=== PATIENT | male | born 1955 | race Caucasian/White ===

== ENCOUNTER 2018-03-18 09:52 | Emergency (ER) | payer MEDICARE, SELFPAY ==
[2018-03-18] VITALS (18 sets, daily range): BP systolic 138–167; BP diastolic 87–105; PULSE 64–87; RESP 10–18; TEMP 36.4–36.9; O2SAT 95–99
[2018-03-18 10:45] LABS: Abs Immature Grans 0.03 k/cumm (0.0-0.09); Absolute Basophil Count 0.02 k/cumm (0.0-0.2); Absolute Eosinophil Count 0.24 k/cumm (0.0-0.7); Absolute Lymphocyte Count 1.21 k/cumm (1.2-3.4); Absolute Monocyte Count 0.51 k/cumm (0.11-0.7); Absolute Neutrophil Count 4.66 k/cumm (1.2-6.7); Basophils % 0.3; Eosinophils % 3.6; HCT 49.9 % (40.0-50.0); HGB 16.5 g/dL (13.5-17.5); Immature Grans % 0.4; Lymphocytes % 18.1; Mean Corp. HGB Concentration 33.1 g/dL (32.0-36.0); Mean Corpuscular Hemoglobin 29.8 pg (27.0-33.0); Mean Corpuscular Volume 90.2 fL (80-95); Mean Platelet Volume 9.6 fL (8.0-11.0); Monocytes % 7.6; Platelet Count 170 x1000/uL (130-400); RBC 5.53 m/cumm (4.50-6.00); RBC Distribution Width 13.7 % (11.8-14.1); White Blood Cell Count 6.67 k/cumm (4.4-10.8)
[2018-03-18] MEDS: Normal Saline 1,000 ML 1000 ML IV (10:55)
[2018-03-18 11:02] LABS: INR 1.1 (1.0-3.5); PTT Activated 26.5 sec (21.0-31.4); Prothrombin Time 10.3 sec (9.3-10.8)
[2018-03-18 11:06] LABS: ALT 35 U/L (12-78); AST 19 U/L (15-37); Albumin 3.7 g/dL (3.4-5.0); Alkaline Phosphatase 86 U/L (46-116); Anion Gap 7.5 mmol/L (3-11); BUN 10 mg/dL (7-18); Bilirubin, Total 0.9 mg/dL (0.2-1.0); CO2 29.5 mmol/L (21.0-32.0); CREATININE 1.09 mg/dL (0.70-1.30); Calcium 9.2 mg/dL (8.5-10.1); Chloride 103 mmol/L (98-107); Glucose 163 mg/dL (70-100); Potassium 3.8 mmol/L (3.5-5.1); Sodium 140 mmol/L (136-145); TSH 2.28 uIU/mL (0.358-3.74); Total Protein 7.6 g/dL (6.4-8.2); Troponin I < 0.02 ng/mL (0.00-0.06)
[2018-03-18 11:16] LABS: D-Dimer 438 ng/mlFEU (<500)
--- NOTE | 2018-03-18 11:30 | DI.CT_ITS ---
SYMPTOMS/DIAGNOSIS: SYNCOPE, DIZZY CRANIAL CT, NONCONTRAST: CT examination was performed without contrast administration. There is mild generalized cerebral atrophy. There is unremarkable appearance of the orbital and temporal bone structures. Paranasal sinuses and mastoid air cells are well aerated as visualized. No evidence of acute intracranial hemorrhage, mass effect or midline shift. CONCLUSION: No evidence of acute intracranial process. CT ANGIOGRAPHY, THORAX: CT angiography was performed with multi slice acquisition and multi planar and 3D reconstruction. CT angiography of the thorax was performed with intravenous infusion of 100 cc of Omnipaque 350. Images obtained through the upper abdomen show numerous left renal cysts and unremarkable appearance of visualized portions of the liver, spleen, pancreas, right kidney and adrenals. Gallbladder and bile ducts are CT normal. No evidence of pulmonary embolic disease. No evidence of thoracic aortic dissection or aneurysm. No pericardial effusion or cardiomegaly. No pleural effusion or pneumothorax. There is a small calcified nodule of the right lung base. Minimal apparent changes of scattered pulmonary scarring are noted. Otherwise the lungs are clear. Tracheobronchial tree appears intact. No mediastinal or hilar adenopathy. No axillary or supraclavicular adenopathy. CONCLUSION: No evidence of pulmonary embolic disease.
--- NOTE | 2018-03-18 11:40 | W.ED.GENAD ---
Discharge Plan Disposition Patient Disposition: HOME Condition: Good Discharge Details Chief Complaint: Dizzy/Sync Clinical Impression: Episodic lightheadedness, Acute dehydration Primary Care Provider: JAMES,LOCAL ED Provider: Walter Durand Home Meds and New Rx's Prescriptions: No Action pyridostigmine bromide [Mestinon] 60 mg Tablet 60 mg PO QID RF: 0 hydrocodone-acetaminophen [Vicodin] 5-300 mg Tablet 1 tab PO PRN PRNRF: 0 Discharge Instructions Instructions: Lightheadedness (ED) Additional Instructions: Please drink 8-10 cups of water per day. Please follow-up with your finished garment inspector as soon as possible for further evaluation of your lightheadedness. If you notice any worsening of your symptoms, or any new symptoms such as vomiting, diarrhea, fever, chills, shortness of breath, chest pain, numbness, weakness, or fainting , please return immediately to the emergency department for reevaluation. Please follow up with your primary care provider as soon as possible for reassessment and reevaluation. As always, it was a pleasure participating in your medical care today. Discharge Data Discharge Date/Time-TO BE ENTERED AT DEPARTURE: 03/18/18 15:19 Medical Decision Making This is a pleasant 62-year-old male who presents today for evaluation of near syncope, and nonexertional chest pain. He fainted 1 month ago, and has had multiple near syncopal episodes since then. They recently drove across [place] to visit the leaves. Currently his chest pain is very mild. It is nonexertional. His pulses are equal bilaterally. He has a history of blood clots, but this is 20 years ago when he was on chemotherapy for lymphoma. He is not on any blood thinners now per physician recommendations. He did have a negative stress test 2 years ago. Physical exam shows no significant abnormalities. We will rehydrate the patient, and evaluate for any acute etiology. 11:49 AM D-dimer is negative. EKG is benign at this time. We will get a CTA for evaluation of dissection, I do not think that there is any need for ultrasound of the lower extremities with a negative d-dimer. We will get a CT of the head to rule out any acute intracranial process. EKG 10: 00 Rate 87, intervals normal, sinus rhythm, no ST elevations or depressions. Inverted T wave in V1. No Q waves. Normally EKG CT scan of the head without contrast per virtual radiology demonstrates no acute intracranial abnormality. CT angiogram of the chest per virtual radiology demonstrates #1- for acute pulmonary embolism. #2 atherosclerotic plaque along the thoracic aortic arch. No evidence of aneurysm or dissection. Repeat EKG 15: 07 Rate 63, NE 156, QTc 444, QRS 96, sinus rhythm, no ST elevations or depressions, no T wave inversions, no Q waves. Normal EKG. The patient has had a benign laboratory workup with no significant electrolyte or other abnormalities. Pressure is mildly elevated but stable. CT angiogram, serial EKGs and serial troponins are all negative. The patient states that he feels great at this time. He was rehydrated and I feel that this may have been a strong component for his lightheadedness. We did get the patient up, ambulated him around the department, he showed no evidence of chest pain weakness dizziness or lightheadedness or near syncope. I had a long discussion with the patient regarding further additional workup on an inpatient basis versus discharge home, and patient and are requesting discharge home. I feel that this is reasonable. I discussed with the patient the importance of close follow-up with his finished garment inspector as well as potential tilt table test sting, he states that although he is traveling he will be able to follow-up with his primary care provider and his heart doctor. We discussed red flags for which to return, and the patient understands. I have extensively reviewed the treatment plan and discharge instructions with the patient and their family. I have addressed all patient concerns at this time. The patient and family was made aware of what symptoms to monitor for that would warrant a return to the emergency department. Discussed the plan with the patient and family, they demonstrate verbal understanding and agreement with our assessment and plan at this time. HPI General Date/Time Provider Initiated Documentation: 03/18/18 10:03. HPI Narrative: This is a 62-year-old male with a past medical history of myasthenia gravis, lymphoma 20 years ago, prostate cancer with surgery a few years ago, and a history of clots in the past when he was receiving chemotherapy 20 years ago. He is not on any blood thinners and has not been on any for quite some time. He presents today for evaluation of lightheadedness. He states that for the past month he has been consistently getting more more lightheaded. He did pass out roughly 2-3 weeks ago at one point, and has had multiple near syncopal episodes since then but none currently. He states that they recently just drove across [place] from [facility], to see the leaves, and then roughly 1-2 hours ago he began feeling near syncopal again, very lightheaded, he had associated chest pain, radiating down his left and right arm, worse on the left. He had associated shortness of breath, but denies any cough. This episode lasted roughly 10-15 minutes, and then began to get better on its own. After which she came to the ER for further evaluation. He denies any fevers, chills,, cough, numbness, tingling, weakness, history of stroke, or cardiac disease. He does not smoke. The patient did have a stress test 2 years ago which was negative. He denies any previous symptoms like this in the past. The patient specifically states that he is trying to exert himself when he gets this pain and this does not make it any worse. Sometimes it even makes it better. He denies any hemoptysis. patient denies any recent surgeries. He denies any pertinent family history. He denies any IV or illicit drug use. Related Data Home Medications Medication Instructions Recorded Confirmed hydrocodone-acetaminophen [Vicodin] 1 tab PO PRN PRN 03/18/18 03/18/18 pyridostigmine bromide [Mestinon] 60 mg PO QID 03/18/18 03/18/18 Allergies Allergy/AdvReac Type Severity Reaction Status Date / Time morphine Allergy Unverified 03/18/18 10:51 General Stated Complaint: Dizzy/Sync ANJALI: 2 Review of Systems Review of Systems All systems reviewed & are unremarkable except as noted in HPI and below PFSH Social History Smoking/Tobacco Use Status: Never Exam Narrative Exam Narrative: 1.Const: Well-nourished, Well-developed, appearing stated age 2.Eyes: PERRL, no conjunctival injection, and symmetrical lids. 3.ENT: Atraumatic external nose and ears. Dry MM. Neck: Symmetric, trachea midline, No thyromegaly. 4.CVS: +S1/S2, No murmurs or gallops. Peripheral pulses 2+ and equal in all extremities. Brisk capillary refill in all extremities. Radial pulses equal 5.RESP: Unlabored respiratory effort. Clear to auscultation bilaterally. No wheezes rales or rhonchi 6.GI: Soft, Nontender/Nondistended, No hepatosplenomegaly. No guarding or rebound. 7.MSK: Normocephalic/Atraumatic, Extremities w/o deformity or ttp No cyanosis or clubbing, Normal movement of all extremities 8.Skin: Warm, Dry. No rashes or lesions. 9.Neuro: access manager II-XII grossly intact. Sensation grossly intact, no focal neurologic deficits. All 6 cardinal planes of vision or fully intact. No evidence of horizontal or vertical nystagmus. The patient demonstrated a normal [id number], good dexterity. There was no evidence of dysdiadochokinesia. Patient was able to ambulate without difficulty. There was no wide-based gait. Romberg, and [id number] are both normal on testing. Sensation was intact bilaterally as well as muscle strength bilaterally for all extremities. Patient was able to verbalize butter cup with no slurring, or miss pronunciation. 10.Psych: (AAO) x3. Appropriate mood and affect Course Vital Signs Temperature 36.4 C L 03/18/18 10:40 Pulse 72 03/18/18 10:40 Respiratory Rate 14 03/18/18 10:40 Blood Pressure 167/97 H 03/18/18 10:40 Pulse Oximetry 98 03/18/18 10:40 Temperature 36.4 C L 03/18/18 10:40 Temperature Source Skin 03/18/18 10:40 Pulse 72 03/18/18 10:40 Respiratory Rate 18 03/18/18 10:47 Respiratory Effort 03/18/18 10:47 Respiratory Depth Normal 03/18/18 10:47 Blood Pressure 167/97 H 03/18/18 10:40 Pulse Oximetry 98 03/18/18 10:40 Oxygen Delivery Method Room Air 03/18/18 10:40 Oxygen Flow Rate 0 03/18/18 10:40 Lab/Test Results Lab/Test Results: Laboratory Tests Range/Units 03/18/18 03/18/18 03/18/18 10:35 10:35 10:35 WBC (4.4-10.8) k/cumm 6.67 RBC (4.50-6.00) m/cumm 5.53 Hgb (13.5-17.5) g/dL 16.5 Hct (40.0-50.0) % 49.9 MCV (80-95) fL 90.2 MCH (27.0-33.0) pg 29.8 MCHC (32.0-36.0) g/dL 33.1 RDW (11.8-14.1) % 13.7 Plt Count (130-400) x1000/uL 170 MPV (8.0-11.0) fL 9.6 Immature Gran % 0.4 Neutrophils % 70.0 Lymphocytes % 18.1 Monocytes % 7.6 Eosinophils % 3.6 Basophils % 0.3 Absolute Neutrophils (1.2-6.7) k/cumm 4.66 Absolute Lymphocytes (1.2-3.4) k/cumm 1.21 Absolute Monocytes (0.11-0.7) k/cumm 0.51 Absolute Eosinophils (0.0-0.7) k/cumm 0.24 Absolute Basophils (0.0-0.2) k/cumm 0.02 PT (9.3-10.8) sec INR (1.0-3.5) APTT (21.0-31.4) sec D-Dimer (<500) ng/mlFEU 438 Sodium (136-145) mmol/L 140 Potassium (3.5-5.1) mmol/L 3.8 Chloride (98-107) mmol/L 103 Carbon Dioxide (21.0-32.0) mmol/L 29.5 Anion Gap (3-11) mmol/L 7.5 BUN (7-18) mg/dL 10 Creatinine (0.70-1.30) mg/dL 1.09 Estimated GFR/1.73 m2 (mL/min/1.73m2) >= 60.00 Glucose (70-100) mg/dL 163 H Calcium (8.5-10.1) mg/dL 9.2 Total Bilirubin (0.2-1.0) mg/dL 0.9 AST (15-37) U/L 19 ALT (12-78) U/L 35 Alkaline Phosphatase (46-116) U/L 86 Troponin I (0.00-0.06) ng/mL < 0.02 Total Protein (6.4-8.2) g/dL 7.6 Albumin (3.4-5.0) g/dL 3.7 TSH (0.358-3.74) uIU/mL 2.28 Range/Units 03/18/18 10:35 WBC (4.4-10.8) k/cumm RBC (4.50-6.00) m/cumm Hgb (13.5-17.5) g/dL Hct (40.0-50.0) % MCV (80-95) fL MCH (27.0-33.0) pg MCHC (32.0-36.0) g/dL RDW (11.8-14.1) % Plt Count (130-400) x1000/uL MPV (8.0-11.0) fL Immature Gran % Neutrophils % Lymphocytes % Monocytes % Eosinophils % Basophils % Absolute Neutrophils (1.2-6.7) k/cumm Absolute Lymphocytes (1.2-3.4) k/cumm Absolute Monocytes (0.11-0.7) k/cumm Absolute Eosinophils (0.0-0.7) k/cumm Absolute Basophils (0.0-0.2) k/cumm PT (9.3-10.8) sec 10.3 INR (1.0-3.5) 1.1 APTT (21.0-31.4) sec 26.5 D-Dimer (<500) ng/mlFEU Sodium (136-145) mmol/L Potassium (3.5-5.1) mmol/L Chloride (98-107) mmol/L Carbon Dioxide (21.0-32.0) mmol/L Anion Gap (3-11) mmol/L BUN (7-18) mg/dL Creatinine (0.70-1.30) mg/dL Estimated GFR/1.73 m2 (mL/min/1.73m2) Glucose (70-100) mg/dL Calcium (8.5-10.1) mg/dL Total Bilirubin (0.2-1.0) mg/dL AST (15-37) U/L ALT (12-78) U/L Alkaline Phosphatase (46-116) U/L Troponin I (0.00-0.06) ng/mL Total Protein (6.4-8.2) g/dL Albumin (3.4-5.0) g/dL TSH (0.358-3.74) uIU/mL
--- NOTE | 2018-03-18 11:43 | ED.GENADUL_ITS ---
Discharge Plan Disposition Patient Disposition: HOME Condition: Good Discharge Details Chief Complaint: Dizzy/Sync Clinical Impression: Episodic lightheadedness, Acute dehydration Primary Care Provider: JAMES,LOCAL ED Provider: Walter Durand Home Meds and New Rx's Prescriptions: No Action pyridostigmine bromide [Mestinon] 60 mg Tablet 60 mg PO QID RF: 0 hydrocodone-acetaminophen [Vicodin] 5-300 mg Tablet 1 tab PO PRN PRNRF: 0 Discharge Instructions Instructions: Lightheadedness (ED) Additional Instructions: Please drink 8-10 cups of water per day. Please follow-up with your executive housekeeper as soon as possible for further evaluation of your lightheadedness. If you notice any worsening of your symptoms, or any new symptoms such as vomiting, diarrhea, fever, chills, shortness of breath, chest pain, numbness, weakness, or fainting , please return immediately to the emergency department for reevaluation. Please follow up with your primary care provider as soon as possible for reassessment and reevaluation. As always, it was a pleasure participating in your medical care today. Discharge Data Discharge Date/Time-TO BE ENTERED AT DEPARTURE: 03/18/18 15:19 Medical Decision Making This is a pleasant 62-year-old male who presents today for evaluation of near syncope, and nonexertional chest pain. He fainted 1 month ago, and has had multiple near syncopal episodes since then. They recently drove across [place] to visit the leaves. Currently his chest pain is very mild. It is nonexertional. His pulses are equal bilaterally. He has a history of blood clots, but this is 20 years ago when he was on chemotherapy for lymphoma. He is not on any blood thinners now per physician recommendations. He did have a negative stress test 2 years ago. Physical exam shows no significant abnormalities. We will rehydrate the patient, and evaluate for any acute etiology. 11:49 AM D-dimer is negative. EKG is benign at this time. We will get a CTA for evaluation of dissection, I do not think that there is any need for ultrasound of the lower extremities with a negative d-dimer. We will get a CT of the head to rule out any acute intracranial process. EKG 10: 00 Rate 87, intervals normal, sinus rhythm, no ST elevations or depressions. Inverted T wave in V1. No Q waves. Normally EKG CT scan of the head without contrast per virtual radiology demonstrates no acute intracranial abnormality. CT angiogram of the chest per virtual radiology demonstrates #1- for acute pulmonary embolism. #2 atherosclerotic plaque along the thoracic aortic arch. No evidence of aneurysm or dissection. Repeat EKG 15: 07 Rate 63, NM 156, QTc 444, QRS 96, sinus rhythm, no ST elevations or depressions , no T wave inversions, no Q waves. Normal EKG. The patient has had a benign laboratory workup with no significant electrolyte or other abnormalities. Pressure is mildly elevated but stable. CT angiogram, serial EKGs and serial troponins are all negative. The patient states that he feels great at this time. He was rehydrated and I feel that this may have been a strong component for his lightheadedness. We did get the patient up, ambulated him around the department, he showed no evidence of chest pain weakness dizziness or lightheadedness or near syncope. I had a long discussion with the patient regarding further additional workup on an inpatient basis versus discharge home, and patient and are requesting discharge home. I feel that this is reasonable. I discussed with the patient the importance of close follow-up with his executive housekeeper as well as potential tilt table test sting , he states that although he is traveling he will be able to follow-up with his primary care provider and his heart doctor. We discussed red flags for which to return, and the patient understands. I have extensively reviewed the treatment plan and discharge instructions with the patient and their family. I have addressed all patient concerns at this time. The patient and family was made aware of what symptoms to monitor for that would warrant a return to the emergency department. Discussed the plan with the patient and family, they demonstrate verbal understanding and agreement with our assessment and plan at this time. HPI General Date/Time Provider Initiated Documentation: 03/18/18 10:03 . HPI Narrative: This is a 62-year-old male with a past medical history of myasthenia gravis, lymphoma 20 years ago, prostate cancer with surgery a few years ago, and a history of clots in the past when he was receiving chemotherapy 20 years ago. He is not on any blood thinners and has not been on any for quite some time. He presents today for evaluation of lightheadedness. He states that for the past month he has been consistently getting more more lightheaded. He did pass out roughly 2-3 weeks ago at one point, and has had multiple near syncopal episodes since then but none currently. He states that they recently just drove across [place] from [facility], to see the leaves , and then roughly 1-2 hours ago he began feeling near syncopal again, very lightheaded, he had associated chest pain, radiating down his left and right arm , worse on the left. He had associated shortness of breath, but denies any cough. This episode lasted roughly 10-15 minutes, and then began to get better on its own. After which she came to the ER for further evaluation. He denies any fevers, chills,, cough, numbness, tingling, weakness, history of stroke, or cardiac disease. He does not smoke. The patient did have a stress test 2 years ago which was negative. He denies any previous symptoms like this in the past. The patient specifically states that he is trying to exert himself when he gets this pain and this does not make it any worse. Sometimes it even makes it better. He denies any hemoptysis. patient denies any recent surgeries. He denies any pertinent family history. He denies any IV or illicit drug use. Related Data Home Medications Medication Instructions Recorded Confirmed hydrocodone-acetaminophen [Vicodin] 1 tab PO PRN PRN 03/18/18 03/18/18 pyridostigmine bromide [Mestinon] 60 mg PO QID 03/18/18 03/18/18 Allergies Allergy/AdvReac Type Severity Reaction Status Date / Time morphine Allergy Unverified 03/18/18 10:51 General Stated Complaint: Dizzy/Sync ANJALI: 2 Review of Systems Review of Systems All systems reviewed & are unremarkable except as noted in HPI and below PFSH Social History Smoking/Tobacco Use Status: Never Exam Narrative Exam Narrative: 1.Const: Well-nourished, Well-developed, appearing stated age 2.Eyes: PERRL, no conjunctival injection, and symmetrical lids. 3.ENT: Atraumatic external nose and ears. Dry MM. Neck: Symmetric, trachea midline, No thyromegaly. 4.CVS: +S1/S2, No murmurs or gallops. Peripheral pulses 2+ and equal in all extremities. Brisk capillary refill in all extremities. Radial pulses equal 5.RESP: Unlabored respiratory effort. Clear to auscultation bilaterally. No wheezes rales or rhonchi 6.GI: Soft, Nontender/Nondistended, No hepatosplenomegaly. No guarding or rebound. 7.MSK: Normocephalic/Atraumatic, Extremities w/o deformity or ttp No cyanosis or clubbing, Normal movement of all extremities 8.Skin: Warm, Dry. No rashes or lesions. 9.Neuro: sports information director II-XII grossly intact. Sensation grossly intact, no focal neurologic deficits. All 6 cardinal planes of vision or fully intact. No evidence of horizontal or vertical nystagmus. The patient demonstrated a normal [id number], good dexterity. There was no evidence of dysdiadochokinesia. Patient was able to ambulate without difficulty. There was no wide-based gait. Romberg, and [id number] are both normal on testing. Sensation was intact bilaterally as well as muscle strength bilaterally for all extremities. Patient was able to verbalize butter cup with no slurring, or miss pronunciation. 10.Psych: (AAO) x3. Appropriate mood and affect Course Vital Signs Temperature 36.4 C L 03/18/18 10:40 Pulse 72 03/18/18 10:40 Respiratory Rate 14 03/18/18 10:40 Blood Pressure 167/97 H 03/18/18 10:40 Pulse Oximetry 98 03/18/18 10:40 Temperature 36.4 C L 03/18/18 10:40 Temperature Source Skin 03/18/18 10:40 Pulse 72 03/18/18 10:40 Respiratory Rate 18 03/18/18 10:47 Respiratory Effort 03/18/18 10:47 Respiratory Depth Normal 03/18/18 10:47 Blood Pressure 167/97 H 03/18/18 10:40 Pulse Oximetry 98 03/18/18 10:40 Oxygen Delivery Method Room Air 03/18/18 10:40 Oxygen Flow Rate 0 03/18/18 10:40 Lab/Test Results Lab/Test Results: Laboratory Tests Range/Units 03/18/18 03/18/18 03/18/18 10:35 10:35 10:35 WBC (4.4-10.8) k/cumm 6.67 RBC (4.50-6.00) m/cumm 5.53 Hgb (13.5-17.5) g/dL 16.5 Hct (40.0-50.0) % 49.9 MCV (80-95) fL 90.2 MCH (27.0-33.0) pg 29.8 MCHC (32.0-36.0) g/dL 33.1 RDW (11.8-14.1) % 13.7 Plt Count (130-400) x1000/uL 170 MPV (8.0-11.0) fL 9.6 Immature Gran % 0.4 Neutrophils % 70.0 Lymphocytes % 18.1 Monocytes % 7.6 Eosinophils % 3.6 Basophils % 0.3 Absolute Neutrophils (1.2-6.7) k/cumm 4.66 Absolute Lymphocytes (1.2-3.4) k/cumm 1.21 Absolute Monocytes (0.11-0.7) k/cumm 0.51 Absolute Eosinophils (0.0-0.7) k/cumm 0.24 Absolute Basophils (0.0-0.2) k/cumm 0.02 PT (9.3-10.8) sec INR (1.0-3.5) APTT (21.0-31.4) sec D-Dimer (<500) ng/mlFEU 438 Sodium (136-145) mmol/L 140 Potassium (3.5-5.1) mmol/L 3.8 Chloride (98-107) mmol/L 103 Carbon Dioxide (21.0-32.0) mmol/L 29.5 Anion Gap (3-11) mmol/L 7.5 BUN (7-18) mg/dL 10 Creatinine (0.70-1.30) mg/dL 1.09 Estimated GFR/1.73 m2 (mL/min/1.73m2) >= 60.00 Glucose (70-100) mg/dL 163 H Calcium (8.5-10.1) mg/dL 9.2 Total Bilirubin (0.2-1.0) mg/dL 0.9 AST (15-37) U/L 19 ALT (12-78) U/L 35 Alkaline Phosphatase (46-116) U/L 86 Troponin I (0.00-0.06) ng/mL < 0.02 Total Protein (6.4-8.2) g/dL 7.6 Albumin (3.4-5.0) g/dL 3.7 TSH (0.358-3.74) uIU/mL 2.28 Range/Units 03/18/18 10:35 WBC (4.4-10.8) k/cumm RBC (4.50-6.00) m/cumm Hgb (13.5-17.5) g/dL Hct (40.0-50.0) % MCV (80-95) fL MCH (27.0-33.0) pg MCHC (32.0-36.0) g/dL RDW (11.8-14.1) % Plt Count (130-400) x1000/uL MPV (8.0-11.0) fL Immature Gran % Neutrophils % Lymphocytes % Monocytes % Eosinophils % Basophils % Absolute Neutrophils (1.2-6.7) k/cumm Absolute Lymphocytes (1.2-3.4) k/cumm Absolute Monocytes (0.11-0.7) k/cumm Absolute Eosinophils (0.0-0.7) k/cumm Absolute Basophils (0.0-0.2) k/cumm PT (9.3-10.8) sec 10.3 INR (1.0-3.5) 1.1 APTT (21.0-31.4) sec 26.5 D-Dimer (<500) ng/mlFEU Sodium (136-145) mmol/L Potassium (3.5-5.1) mmol/L Chloride (98-107) mmol/L Carbon Dioxide (21.0-32.0) mmol/L Anion Gap (3-11) mmol/L BUN (7-18) mg/dL Creatinine (0.70-1.30) mg/dL Estimated GFR/1.73 m2 (mL/min/1.73m2) Glucose (70-100) mg/dL Calcium (8.5-10.1) mg/dL Total Bilirubin (0.2-1.0) mg/dL AST (15-37) U/L ALT (12-78) U/L Alkaline Phosphatase (46-116) U/L Troponin I (0.00-0.06) ng/mL Total Protein (6.4-8.2) g/dL Albumin (3.4-5.0) g/dL TSH (0.358-3.74) uIU/mL
--- NOTE | 2018-03-18 12:16 | DI.VRAD_ITS ---
EXAM: CT Head Without Intravenous Contrast EXAM DATE/TIME: 03/18/2018 11:32 AM CLINICAL HISTORY: 62 years old, male; Signs and symptoms; Dizziness and syncope and collapse; Patient HX: Syncope, dizzy TECHNIQUE: Axial computed tomography images of the head/brain without intravenous contrast. Coronal and sagittal reformatted images were created and reviewed. COMPARISON: No relevant prior studies available. FINDINGS: Brain: Central and cortical brain atrophy evident, appropriate for patient age. 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 No acute intracranial hemorrhage. Ventricles: Normal. No ventriculomegaly. Bones/joints: Normal. No acute fracture. Sinuses: Normal as visualized. No acute sinusitis. Mastoid air cells: Normal as visualized. No mastoid effusion. Soft tissues: Normal. IMPRESSION: No acute intracranial abnormality. Dictated and Authenticated by: Mansi Garduno MD. Ordering:ANA REARDON MD
--- NOTE | 2018-03-18 12:22 | DI.VRAD_ITS ---
EXAM: CT Angiography Chest With Intravenous Contrast EXAM DATE/TIME: 03/18/2018 11:46 AM CLINICAL HISTORY: 62 years old, male; Signs and symptoms; Other: Syncope TECHNIQUE: Axial computed tomographic angiography images of the chest with intravenous contrast using CT angiography protocol. Coronal and sagittal reformatted images were created and reviewed. MIP reconstructed images were created and reviewed. COMPARISON: No relevant prior studies available. FINDINGS: Pulmonary arteries: Negative for acute pulmonary embolism. Aorta: Atherosclerotic plaque along the thoracic aortic arch. No evidence of aneurysm or dissection. Lungs: Normal. No consolidation. No masses. Pleural space: Normal. No pneumothorax. No pleural effusion. Heart: Normal. No cardiomegaly. No pericardial effusion. Bones/joints: Unremarkable. No acute fracture. Soft tissues: Unremarkable. Lymph nodes: Previous granulomatous exposure. No enlarged lymph nodes. IMPRESSION: 1. Negative for acute pulmonary embolism. 2. Atherosclerotic plaque along the thoracic aortic arch. No evidence of aneurysm or dissection. Dictated and Authenticated by: Mansi Garduno MD. Ordering:ANA REARDON MD
[2018-03-18 14:08] LABS: Troponin I < 0.02 ng/mL (0.00-0.06)
== END 2018-03-18 15:19 | disposition home or self-care (01) ==
PROVIDERS: Emergency Provider Student in an Organized Health Care Education/Training Program
DX: R42 Dizziness and giddiness (principal); E86.0 Dehydration; R07.9 Chest pain, unspecified
CPT/HCPCS: 36415; 71275; 80053; 93005; 96360; 99285; 70450; 84443; 84484; 85025; 85379; 85610; 85730; 93010